=== PATIENT | male | born 1950 | race African-American/Black ===

== ENCOUNTER 2021-04-02 06:15 | Inpatient (IN) | payer BC, SELFPAY ==
[2021-03-29 11:01] LABS: BASOPHILS % (AUTO) 1.1 % (0.0-2.0); EOSINOPHILS # (AUTO) 0.3 K/uL (0.0-0.4); EOSINOPHILS % (AUTO) 6.3 % (0.0-4.0); HEMATOCRIT 40.3 % (36-54); HEMOGLOBIN 13.6 g/dL (14.0-18.0); LYMPHOCYTES # (AUTO) 1.1 K/uL (1.0-5.5); MEAN CORPUSCULAR HEMOGLOBIN 32 pg (27-31); MEAN CORPUSCULAR HGB CONC 34 % (32-36); MEAN CORPUSCULAR VOLUME 94 fL (79.0-98.0); MONOCYTES # (AUTO) 0.4 K/uL (0.0-1.0); MONOCYTES % (AUTO) 8.7 % (1.7-9.3); NEUTROPHILS # (AUTO) 2.5 K/uL (1.8-7.7); NEUTROPHILS % (AUTO) 57.9 % (40.0-70.0); PLATELET COUNT (AUTO) 340 K/uL (130-430); RED BLOOD CELL COUNT(AUTO) 4.28 MIL/uL (4.2-6.2); RED CELL DISTRIBUTION WIDTH 12.7 % (9.0-15.0); WHITE BLOOD COUNT (AUTO) 4.3 K/uL (4.8-10.8)
[2021-03-29 11:07] LABS: ANION GAP 6 (5-15); CALCIUM 8.9 mg/dL (8.4-11.0); CHLORIDE 102 mmol/L (98-107); CREATININE 0.97 mg/dL (0.55-1.30); GLUCOSE 87 mg/dL (70-99); POTASSIUM 3.5 mmol/L (3.5-5.1); SODIUM SERUM 141 mmol/L (136-145); UREA NITROGEN, BLOOD 15 mg/dL (8-21)
[2021-03-29 11:20] LABS: BILIRUBIN,URINE NEGATIVE (NEGATIVE); BLOOD, URINE NEGATIVE (NEGATIVE); CLARITY/URINE CLEAR (CLEAR); COLOR,URINE YELLOW (YELLOW); GLUCOSE,URINE NEGATIVE (NEGATIVE); KETONES,URINE NEGATIVE (NEGATIVE); LEUKOCYTE ESTERASE ,URINE NEGATIVE (NEGATIVE); NITRITE, URINE NEGATIVE (NEGATIVE); PROTEIN URINE NEGATIVE (NEGATIVE); UROBILINOGEN,URINE 0.2 (0.2-1.0)
[2021-03-29 12:16] LABS: INR 0.9 (0.80-1.20); PROTHROMBIN TIME 9.9 SECS (9.5-12.5)
[~2021-04-02] VITALS: Ht 172.7 cm; Wt 72.6 kg
[2021-04-02] MEDS ORDERED: BUPIVACAINE LIPOSOME/PF 266 MG/20 ML VIAL INFIL ONE (07:25)
[2021-04-02] MEDS ORDERED: WATER FOR IRRIGATION,STERILE 1,000 ML IRRIG.SOLN IR ONE (07:29)
[2021-04-02] MEDS ORDERED: PROPOFOL 200MG/ 20ML VIAL (DIPRIVAN) IV ONE (07:29)
[2021-04-02] MEDS ORDERED: BUPIVACAINE /PF 0.75% 10 ML VIAL INJ ONE (07:29)
[2021-04-02] MEDS ORDERED: TRANEXAMIC ACID 1,000 MG/10 ML VIAL IV ONE (07:29)
[2021-04-02] MEDS ORDERED: BUPIVACAINE /EPINEPHRINE/PF 0.25% 30 ML VIAL INJ ONE (07:29)
[2021-04-02] MEDS ORDERED: NS IRRIG SOLN 1000 ML IR ONE (07:29)
[2021-04-02] MEDS ORDERED: MIDAZOLAM HCL 5 MG/5 ML VIAL IVP ONE (07:29)
[2021-04-02] MEDS ORDERED: LIDOCAINE 2%, 20 ML MDV INJ ONE (07:29)
[2021-04-02] MEDS ORDERED: ePHEDrine sulfate 50 MG/ML VIAL IVP ONE (07:29)
[2021-04-02] MEDS ORDERED: LR 1,000 ML IV.SOLN IV ONE (07:29)
[2021-04-02] MEDS ORDERED: BUPIVACAINE /PF 0.25% 30 ML VIAL INJ ONE (07:29)
[2021-04-02] MEDS ORDERED: CEFAZOLIN 2 GM IVPB PREMIX 50 ML IV ONE (07:29)
[2021-04-02] MEDS ORDERED: MORPHINE SULFATE 10MG/10ML PF AMP EP ONE (07:29)
[2021-04-02] MEDS ORDERED: D5/0.45 NS 1,000 ML IV ONE (08:00)
[2021-04-02] MEDS ORDERED: BISACODYL 10 MG/SUPPOSITORY RC PRN (08:00)
[2021-04-02] MEDS ORDERED: ACETAMINOPHEN 325 MG TABLET PO PRN (08:00)
[2021-04-02] MEDS ORDERED: NETA2.5D EACH EYE (08:20)
[2021-04-02] MEDS ORDERED: MESA500C PO (08:20)
[2021-04-02] MEDS ORDERED: HYDR12.55 PO (08:20)
[2021-04-02] MEDS ORDERED: BIMA2.5D5 EACH EYE (08:20)
[2021-04-02] MEDS ORDERED: TIMO1DRO5 EACH EYE (08:20)
[2021-04-02] MEDS ORDERED: NALOXONE HCL 0.4 MG/ML AMP (NARCAN) IVP PRN ×3 (08:30)
[2021-04-02] MEDS ORDERED: HYDROmorphone 1 MG/ML INJ. CARTRIDGE IVP PRN ×2 (08:30)
[2021-04-02] MEDS ORDERED: MEPERIDINE HCL/PF 25 MG/ML DISP.SYRIN IVP PRN (08:30)
[2021-04-02] MEDS: LR 1,000 ML IV SCH (08:30)
[2021-04-02] MEDS ORDERED: DIPHENHYDRAMINE INJ 50 MG/ML VIAL IVP PRN (08:30)
[2021-04-02] MEDS ORDERED: ONDANSETRON HCL 4 MG/2 ML VIAL IVP PRN ×2 (08:30)
[2021-04-02] MEDS ORDERED: MIDAZOLAM HCL 2 MG/2 ML VIAL (VERSED) IVP PRN (08:30)
[2021-04-02] MEDS: RIVAROXABAN 10 MG TABLET PO SCH (09:00)
[2021-04-02 09:45] VITALS: BP_SYST 99
[2021-04-02] MEDS: CEFAZOLIN 1 GM IVPB PREMIX 50 ML IV SCH ×2 (12:00→22:17)
[2021-04-02 12:38] VITALS: BP_SYST 118
[2021-04-02 13:27] VITALS: BP_SYST 118
--- NOTE | 2021-04-02 13:38 | NUR ---
PATIENT`AAOX4. LUNGS BILATERALLY CLEAR. ABDOMEN SOFT AND NON DISTENDED. HAS IV ACCESS ON THE RIGHT FOREARM #20. STARTED ON D5/12 NS AT 75CC/HR INFUSING ON WELL. HAS DRESSING ON THE LEFT KNEE. ABLE TO WIGGLE HIS TOES. NO PAIN NOTED. WILL CONTINUE TO MONITOR PATIENTS STATUS.
--- NOTE | 2021-04-02 16:00 | NUR ---
DIALYSIS DONE ABOUT 3000 LITERS OUT. Addendum: 04/02/21 at 1818 by Marisol Esquivel RN NOT ON THIS PATIENT.
--- NOTE | 2021-04-02 16:53 | NUR ---
P.T. NOTES P.T. EVAL COMPLETED; REFER TO [facility] FOR DETAILS. Addendum: 04/02/21 at 1709 by Felipa Allred PT ENDORSED TO NURSING REMOVAL OF CPM @2000.
--- NOTE | 2021-04-02 18:00 | NUR ---
LATEST BS 87 MG/DL. NO COVERAGE GIVEN. HUMULIN 70/[address] BLACKMON HOLD THE HUMULIN 70/30. FOR NOW. PATIENT IS EATING DINNER NOW. VERBALIZED IV ACCESS HURTING HER, RN REMOVED. IT. WANTS TO HAVE ANOTHER IV ACCESS TO BE PLACED. Addendum: 04/02/21 at 1818 by Marisol Esquivel RN NOT ON THIS PATIENT.
--- NOTE | 2021-04-02 18:00 | NUR ---
PATIENT STABLE. NO PAIN NOTED. SILL ON [facility]. NO BLEEDING NOTED.
[2021-04-02 18:07] VITALS: BP_SYST 135
--- NOTE | 2021-04-02 18:13 | NUR ---
PATIENT ON CPM MACHINE AND NEEDS TO BE OFF AT 2000PM, PER PHYSICAL THERAPIST. ABLE TO WALK SIDES TO SIDES.
[2021-04-02 19:00] VITALS: BP_SYST 142
--- NOTE | 2021-04-02 19:00 | NUR ---
PATIENT`AAOX4. LUNGS BILATERALLY CLEAR BILATERALLY. RESPIRATIONS EVEN AND UNLABORED. ABDOMEN SOFT AND NON DISTENDED. IV TO RIGHT FOREARM #20 CONTINUED D5/12 NS AT 75CC/HR INFUSING ON WELL. HAS DRESSING ON THE LEFT KNEE. ABLE TO WIGGLE HIS TOES. NO PAIN NOTED. WILL CONTINUE TO MONITOR PATIENTS STATUS. PATIENT EDUCATED TO MEDICATION REGIMEN, FALL AND SAFETY INTERVENTIONS AND RN PLAN OF CARE. NO ACUTE DISTRESS NOTED. VSS.
[2021-04-02 20:00] VITALS: BP_SYST 126
[2021-04-02] MEDS: HYDROcodone/ACETAMIN 7.5-325 MG TAB PO PRN (22:50)
[2021-04-03] VITALS (7 sets, daily range): BP systolic 110–144
--- NOTE | 2021-04-03 | NUR ---
PATIENT SLEEPING DURING ROUNDING, EASILY AROUSED. PT ASSISTED WITH ADL'S AND REPOSITIONING. NO ACUTE DISTRESS NOTED. RN TO CONTINUE WITH MEDICAL PLAN OF CARE.
[2021-04-03] MEDS: LR 1,000 ML IV SCH ×4 (01:10→20:59)
--- NOTE | 2021-04-03 05:43 | NUR ---
Nutrition Update Joe Scale 18 noted. Pt admitted for Unilateral Primary Osteoarthritis Left knee Diet: Regular BMI: 24.3 kg/m2 RD to follow per nutrition care standards.
[2021-04-03 06:41] LABS: BASOPHILS % (AUTO) 0.1 % (0.0-2.0); EOSINOPHILS % (AUTO) 0.1 % (0.0-4.0); HEMOGLOBIN 10.9 g/dL (14.0-18.0); LYMPHOCYTES # (AUTO) 0.8 K/uL (1.0-5.5); LYMPHOCYTES % (AUTO) 7.7 % (20.5-51.5); MEAN CORPUSCULAR HEMOGLOBIN 32 pg (27-31); MEAN CORPUSCULAR HGB CONC 34 % (32-36); MEAN CORPUSCULAR VOLUME 94 fL (79.0-98.0); MONOCYTES # (AUTO) 1.2 K/uL (0.0-1.0); MONOCYTES % (AUTO) 11.7 % (1.7-9.3); NEUTROPHILS # (AUTO) 8.1 K/uL (1.8-7.7); NEUTROPHILS % (AUTO) 80.4 % (40.0-70.0); PLATELET COUNT (AUTO) 269 K/uL (130-430); RED BLOOD CELL COUNT(AUTO) 3.42 MIL/uL (4.2-6.2); RED CELL DISTRIBUTION WIDTH 12.5 % (9.0-15.0)
[2021-04-03 07:49] LABS: ANION GAP 7 (5-15); CALCIUM 8.1 mg/dL (8.4-11.0); CHLORIDE 101 mmol/L (98-107); CREATININE 0.85 mg/dL (0.55-1.30); GLUCOSE 124 mg/dL (70-99); POTASSIUM 3.4 mmol/L (3.5-5.1); SODIUM SERUM 136 mmol/L (136-145); UREA NITROGEN, BLOOD 14 mg/dL (8-21)
[2021-04-03] MEDS: HYDROcodone/ACETAMIN 7.5-325 MG TAB PO PRN ×3 (08:32→18:47)
[2021-04-03] MEDS: RIVAROXABAN 10 MG TABLET PO SCH (08:35)
--- NOTE | 2021-04-03 09:28 | NUR ---
Patient was awake and eating breakfast comfortably in bed. PT did not present any signs of distress. Vitals were within normal limits. Will assess patient on next rounds.
[2021-04-03 09:57] LABS: ERYTHROCYTE SEDIMENTATION RATE 15 MM/HR (0-15)
[2021-04-03 10:04] LABS: C-REACTIVE PROTEIN QUANT 4.2 mg/dL (0-0.5)
[2021-04-03] MEDS: MORPHINE SULFATE 10 MG/ML VIAL IM PRN ×2 (11:29→19:54)
--- NOTE | 2021-04-03 16:52 | NUR ---
Patient is AA with no s/s of RD noted. IS was completed x3 with avg. of 1000ml. Patient was coached on purpose of IS proper use of IS and instructed to perform IS throughout the day.
[2021-04-04 00:49] VITALS: BP_SYST 140
[2021-04-04 04:00] VITALS: BP_SYST 122
[2021-04-04] MEDS: MORPHINE SULFATE 10 MG/ML VIAL IM PRN ×2 (05:21→15:16)
[2021-04-04 07:24] LABS: BASOPHILS % (AUTO) 0.2 % (0.0-2.0); EOSINOPHILS % (AUTO) 0.1 % (0.0-4.0); HEMATOCRIT 29.6 % (36-54); HEMOGLOBIN 10.2 g/dL (14.0-18.0); LYMPHOCYTES % (AUTO) 8.7 % (20.5-51.5); MEAN CORPUSCULAR HEMOGLOBIN 32 pg (27-31); MEAN CORPUSCULAR HGB CONC 34 % (32-36); MEAN CORPUSCULAR VOLUME 93 fL (79.0-98.0); MONOCYTES # (AUTO) 1.8 K/uL (0.0-1.0); MONOCYTES % (AUTO) 16.1 % (1.7-9.3); NEUTROPHILS # (AUTO) 8.3 K/uL (1.8-7.7); NEUTROPHILS % (AUTO) 74.9 % (40.0-70.0); PLATELET COUNT (AUTO) 248 K/uL (130-430); RED BLOOD CELL COUNT(AUTO) 3.19 MIL/uL (4.2-6.2); RED CELL DISTRIBUTION WIDTH 12.6 % (9.0-15.0); WHITE BLOOD COUNT (AUTO) 11.1 K/uL (4.8-10.8)
--- NOTE | 2021-04-04 07:33 | NUR ---
PHYSICAL THERAPY CO-SIGN The Physical Therapy Progress Notes documented by Head Of Research & Insights have been reviewed. Reviewed/Co-Signed by: Daniel Lerner Documentation Done by: NAIF ALMODOVAR PTA Addendum: 04/04/21 at 0734 by Daniel Lerner PT Amended: Links added.
--- NOTE | 2021-04-04 07:34 | NUR ---
PHYSICAL THERAPY CO-SIGN The Physical Therapy Progress Notes documented by Painter And Body Mechanic Apprentice have been reviewed. Reviewed/Co-Signed by: Daniel Lerner Documentation Done by: MELINDA ALMODOVAR PTA Addendum: 04/04/21 at 0734 by Daniel Lerner PT Amended: Links added.
[2021-04-04 07:52] LABS: ALANINE AMINOTRANSFERASE 28 U/L (12-78); ALBUMIN 2.7 g/dL (3.4-4.8); ANION GAP 7 (5-15); ASPARTATE AMINOTRANSFERASE 19 U/L (10-37); CALCIUM 8.4 mg/dL (8.4-11.0); CHLORIDE 100 mmol/L (98-107); CREATININE 0.91 mg/dL (0.55-1.30); GLUCOSE 113 mg/dL (70-99); POTASSIUM 3.3 mmol/L (3.5-5.1); SODIUM SERUM 136 mmol/L (136-145); TOTAL BILIRUBIN 1.9 mg/dL (0.0-1.0); UREA NITROGEN, BLOOD 11 mg/dL (8-21)
--- NOTE | 2021-04-04 09:19 | NUR ---
Paged dr Martin at this time regarding low potassium level this am. K is 3.3. orders from dr. Mcguire for replacement of potassium. patient's smith catheter removed at this time by Iris MAE. Patient administered urine. Patient updated on plan of care and post op urinary catheter removal.
[2021-04-04] MEDS ORDERED: POTASSIUM CHLORIDE 10 MEQ TAB.PRT.SR PO ONE ×2 (09:30→10:00)
[2021-04-04] MEDS: RIVAROXABAN 10 MG TABLET PO SCH (09:31)
[2021-04-04] MEDS: HYDROcodone/ACETAMIN 7.5-325 MG TAB PO PRN (09:32)
[2021-04-04] MEDS: LR 1,000 ML IV SCH ×2 (10:30→20:08)
[2021-04-04 12:00] VITALS: BP_SYST 133
--- NOTE | 2021-04-04 12:21 | NUR ---
PHYSICAL THERAPY CO-SIGN The Physical Therapy Progress Notes documented by Cobol Programmer have been reviewed. Reviewed/Co-Signed by: Daniel Lerner Documentation Done by: MELINDA ALMODOVAR PTA Addendum: 04/04/21 at 1222 by Daniel Lerner PT Amended: Links added.
--- NOTE | 2021-04-04 12:21 | NUR ---
PHYSICAL THERAPY CO-SIGN The Physical Therapy Progress Notes documented by Artificial Breeding Distributor have been reviewed. Reviewed/Co-Signed by: Daniel Lerner Documentation Done by: MELINDA ALMODOVAR PTA Addendum: 04/04/21 at 1222 by Daniel Lerner PT Amended: Links added.
--- NOTE | 2021-04-04 12:38 | NUR ---
CM: faxed DME requesting CPM to [facility] fax # [phone], tel [phone]. >> Faxed the home health referral to [facility] , [facility] fax # [phone], tel # [phone].
[2021-04-04 16:00] VITALS: BP_SYST 128
--- NOTE | 2021-04-04 16:18 | NUR ---
PATIENT STATES AT THIS TIME THAT HE IS WAITING FOR CPM MACHINE TO BE DELIVERED TO THE HOUSE BEFORE DISCHARGE. PATIENT IS AWARE OF BENEFITS OF CPM THERAPY AND VERBALIZES.
[2021-04-04 19:00] VITALS: BP_SYST 136
[2021-04-04 20:00] VITALS: BP_SYST 131
[2021-04-04] MEDS: POTASSIUM CHLORIDE 10 MEQ TAB.PRT.SR PO SCH (20:07)
[2021-04-04] MEDS ORDERED: POTASSIUM CHLORIDE 10 MEQ TAB.PRT.SR PO SCH (21:00)
[2021-04-05] VITALS: BP_SYST 122
[2021-04-05] MEDS: LR 1,000 ML IV SCH ×2 (03:29→11:30)
[2021-04-05 08:00] VITALS: BP_SYST 131
--- NOTE | 2021-04-05 08:04 | NUR ---
OPENING NOTE AWAKE AND ORIENTED. NO SHORTNESS OF BREATH ON ROOM AIR. DENIES ANY PAIN. ON CONTINUOUS PASSIVE MACHINE AND PATIENT IS TOLERATING IT WELL. IV ACCESS ON LEFT HAND INTACT. PLAN OF CARE EXPLAINED TO PATIENT, VERBALIZED UNDERSTANDING. SAFETY CHECKS DONE. CALL LIGHT WITHIN REACH. WILL MONITOR.
[2021-04-05] MEDS: POTASSIUM CHLORIDE 10 MEQ TAB.PRT.SR PO SCH (10:17)
[2021-04-05] MEDS: RIVAROXABAN 10 MG TABLET PO SCH (10:18)
[2021-04-05] MEDS: HYDROcodone/ACETAMIN 7.5-325 MG TAB PO PRN ×2 (10:20→15:20)
[2021-04-05 11:06] LABS: ANION GAP 3 (5-15); CALCIUM 8.5 mg/dL (8.4-11.0); CHLORIDE 99 mmol/L (98-107); CREATININE 1.06 mg/dL (0.55-1.30); GLUCOSE 105 mg/dL (70-99); POTASSIUM 3.2 mmol/L (3.5-5.1); SODIUM SERUM 133 mmol/L (136-145); UREA NITROGEN, BLOOD 12 mg/dL (8-21)
[2021-04-05 11:08] LABS: BASOPHILS % (AUTO) 0.3 % (0.0-2.0); EOSINOPHILS % (AUTO) 0.1 % (0.0-4.0); HEMOGLOBIN 9.3 g/dL (14.0-18.0); LYMPHOCYTES # (AUTO) 0.6 K/uL (1.0-5.5); MEAN CORPUSCULAR HEMOGLOBIN 32 pg (27-31); MEAN CORPUSCULAR HGB CONC 34 % (32-36); MEAN CORPUSCULAR VOLUME 92 fL (79.0-98.0); MONOCYTES % (AUTO) 10.8 % (1.7-9.3); NEUTROPHILS # (AUTO) 7.5 K/uL (1.8-7.7); NEUTROPHILS % (AUTO) 81.8 % (40.0-70.0); PLATELET COUNT (AUTO) 258 K/uL (130-430); RED BLOOD CELL COUNT(AUTO) 2.92 MIL/uL (4.2-6.2); RED CELL DISTRIBUTION WIDTH 12.4 % (9.0-15.0); WHITE BLOOD COUNT (AUTO) 9.2 K/uL (4.8-10.8)
[2021-04-05 12:33] VITALS: BP_SYST 107; BP_SYST 135
--- NOTE | 2021-04-05 13:56 | NUR ---
CM: CPM will be delivered to home once pt is discharged. Notified spouse Roxie, she confirmed same message from the [facility]. >> Per [facility] received auth from insurance and will schedule the visiting. Roxie made aware.
[2021-04-05 15:20] VITALS: BP_SYST 135
== END 2021-04-05 16:00 | disposition home health service (06) | DRG 469 ==
LOC: SMU 06:15
PROVIDERS: ADMIT Orthopaedic Surgery; ATTEND Orthopaedic Surgery
PROC: 0SRD0J9 Replacement of Left Knee Joint with Synthetic Substitute, Cemented, Open Approach (ICD-10-PCS; principal; 2021-04-02 07:39)
DX: M17.12 Unilateral primary osteoarthritis, left knee (principal); E43 Unspecified severe protein-calorie malnutrition; D72.819 Decreased white blood cell count, unspecified; I10 Essential (primary) hypertension; G89.29 Other chronic pain; Z96.652 Presence of left artificial knee joint; R53.81 Other malaise; E88.09 Other disorders of plasma-protein metabolism, not elsewhere classified; D64.9 Anemia, unspecified; E87.6 Hypokalemia; R73.9 Hyperglycemia, unspecified; Z20.822 Contact with and (suspected) exposure to COVID-19; Z79.01 Long term (current) use of anticoagulants
CPT/HCPCS: 36415; 71046-TC; 80048; 80053; 81003; 85025; 85610-TC; 85651-TC; 85730-TC; 86140; 87081; 88305; 88311; 93005; 97039; 97110-GP; 97112-GP; 97116-GP; 97163-GP; 97530-GP; C1713; C1776; C9290; J0690; J2001; J2250; J2270; J2274; J2704; J3490; J7120; U0003